=== PATIENT | female | born 1975 | race Caucasian/White ===

== ENCOUNTER → 2020-11-11 15:48 | Outpatient (CLI) | payer SELFPAY | PROVIDERS: Referring Provider Student in an Organized Health Care Education/Training Program; Visit Provider Student in an Organized Health Care Education/Training Program | DX: H60.90 Unspecified otitis externa, unspecified ear (principal) | CPT/HCPCS: 87070; 87077; 87186; 87205 ==

== ENCOUNTER → 2021-09-20 16:48 | Outpatient (CLI) | payer SELFPAY ==
--- NOTE | 2021-09-20 16:54 | DI.RAD.S_ITS ---
PROCEDURE: XR RIBS LT MIN 3V W CXR1V INDICATIONS: fall, L anterior/lateral rib pain TECHNIQUE: 2 views of the left ribs were acquired, along with a single view chest. COMPARISON: None. FINDINGS: Surgical changes and devices: None. Bones and chest wall: No fractures or dislocations. No suspicious bony lesions. Overlying soft tissues appear unremarkable. Lungs and pleura: No pleural effusions or pneumothorax. Lungs appear clear. Mediastinum: Mediastinal contours appear normal. Heart size is normal. IMPRESSION: No displaced left-sided rib fracture. Dictated by: Emil Willson M.D. on 09/20/2021 at 16:15 Approved by: Emil Willson M.D. on 09/20/2021 at 16:16
== END ==
PROVIDERS: Referring Provider Physician Assistant; Visit Provider Physician Assistant
DX: R07.81 Pleurodynia (principal)
CPT/HCPCS: 71101

== ENCOUNTER 2023-08-03 11:28 | Emergency (ER) | payer OTHER, SELFPAY ==
[2023-08-03 11:50] VITALS: BP 137/72; PULSE 70; RESP 18; TEMP 36.6; O2SAT 99; BMI 23.8
[2023-08-03 12:40] LABS: Add Manual Diff / Slide Review NO; Basophils Absolute Auto 100 /uL (0-100); Basophils Percent Auto 0.8 % (0-2); Eosinophils Absolute Auto 300 /uL (0-450); Eosinophils Percent Auto 4.5 % (2-4); Hematocrit 41.9 % (36-46); Hemoglobin 14.2 g/dL (12.0-16.0); Lymphocytes Absolute Auto 1500 /uL (1100-4500); Lymphocytes Percent Auto 19.3 % (25-40); Mean Corpuscular HGB Conc 33.9 % (30-36); Mean Corpuscular Volume 91.5 fL (80-100); Monocytes Absolute Auto 400 /uL (0-900); Monocytes Percent Auto 5.1 % (3-14); Neutrophils Absolute Auto 5400 /uL (1500-7000); Neutrophils Percent Auto 70.3 % (50-75); Platelet Count 193 X10^3/uL (150-400); Red Blood Cell Count 4.58 X10^6/uL (4.0-5.2); Red Cell Distribution Width 13.1 % (11.6-14.8); White Blood Cell Count 7.7 X10^3/uL (4.5-11.0)
[2023-08-03 12:54] LABS: Alanine Aminotransferase 23 IU/L (<35); Albumin 4.3 g/dL (3.5-5.0); Albumin Globulin Ratio 1.3 (1.0-2.8); Alkaline Phosphatase 60 U/L (38-126); Aspartate Aminotransferase 29 IU/L (14-36); BUN Creatinine Ratio 15.4 (6-22); Bilirubin Total 0.6 mg/dL (0.2-1.3); Blood Urea Nitrogen 10 mg/dL (7-17); Calcium 9.6 mg/dL (8.4-10.2); Carbon Dioxide 30 mmol/L (22-32); Chloride 104 mmol/L (98-107); Estimated Glomerular Filt Rate > 60 mL/min (>60); Globulin 3.4 g/dL (1.7-4.1); Glucose 104 mg/dL (70-100); HEMOLYSIS < 15 (0-50); Lipase 26 U/L (23-300); Potassium 3.9 mmol/L (3.4-5.1); Sodium 140 mmol/L (137-145); Total Protein 7.7 g/dL (6.3-8.2)
--- NOTE | 2023-08-03 13:20 | ED_ITS ---
HPI - General Adult General Chief complaint: Abdominal Pain Stated complaint: severe rectal pain Time Seen by Provider: 08/03/23 13:00 Source: patient Mode of arrival: Ambulatory History of Present Illness HPI narrative: Patient is a 48-year-old female. For the past 3 weeks has had lower abdominal pain, pelvic pain, perineal pain. She states that she feels like her hemorrhoids she has had for the past 15 years are flaring up. Has had very thin stools. Spasming in her rectum. Blood-streaked stool. She also states she is having some problems urinating. No vaginal bleeding. No fevers. No vomiting. No skin changes. Related Data Previous Rx's Medication Instructions Recorded tramadol 50 mg tablet 50 mg PO Q8H PRN pain #10 tabs 08/03/23 Allergies Allergy/AdvReac Type Severity Reaction Status Date / Time Penicillins AdvReac Intermediate Vomitting, Verified 08/03/23 12:38 diarrhea, rash Review of Systems Constitutional Constitutional: Reports system reviewed and no additional complaints, except as documented Gastrointestinal Gastrointestinal: Reports system reviewed and no additional complaints, except as documented Genitourinary Genitourinary: Reports system reviewed and no additional complaints, except as documented Integumentary/Breasts Skin/Breast: Reports system reviewed and no additional complaints, except as documented Hematologic/Lymphatic On Anticoagulants: No Patient History Social History Smoking Status: Never smoker Smoking Status: Never smoker alcohol intake frequency: a few times a month Substance Use Type: marijuana Exam Initial Vital Signs Initial Vital Signs: Vital Signs Temperature 97.8 F 08/03/23 11:50 Pulse Rate 70 08/03/23 11:50 Respiratory Rate 18 08/03/23 11:50 Blood Pressure 137/72 08/03/23 11:50 Pulse Oximetry 99 08/03/23 11:50 Oxygen Delivery Method Room Air 08/03/23 11:50 Const General: cooperative and No ill appearing HENMT Head: normal to inspection and normocephalic Resp Effort & Inspection: normal respiratory effort Cardio Rate: regular rate GI Other: Patient does have nonthrombosed external hemorrhoids. She has tenderness with palpation around the rectal area. There is no erythema. No prolapsed internal hemorrhoids. No gross blood. Does have tenderness to palpation of her lower abdomen bilateral. Skin General: no rashes or lesions noted Neuro General: patient alert, patient awake, patient oriented x3 and moves all extremities Extrem General: normal to inspection and capillary refill normal Course Orders Ordered: ED Orders 08/03/23 12:30 Complete Blood Count AUTO DIFF Stat Comprehensive Metabolic Panel Stat Lipase Stat 08/03/23 13:20 CT abdomen pelvis w con Stat 08/03/23 14:35 US pelvic complete Stat Discontinued Medications Hydromorphone HCl (Hydromorphone 1 Mg Inj) 1 mg IV NOW ONE Stop: 08/03/23 13:20 Last Admin: 08/03/23 13:29 Dose: 1 mg Documented By: GAEL Sodium Chloride (Normal Saline 0.9%) 1,000 mls @ 1,000 mls/hr IV BOLUS ONE Stop: 08/03/23 14:18 Last Infusion: 08/03/23 14:32 Dose: Infused Documented By: Admin: 08/03/23 13:30 Dose: 1,000 mls/hr Documented By: GAEL Ketorolac Tromethamine (Ketorolac 30 Mg/Ml Vial) 30 mg IV NOW ONE Stop: 08/03/23 15:14 Last Admin: 08/03/23 15:41 Dose: 30 mg Documented By: GAEL Ondansetron HCl (Ondansetron 4 Mg/2 Ml Inj) 4 mg IV NOW PRN PRN Reason: Nausea And Vomiting Last Admin: 08/03/23 13:30 Dose: 4 mg Documented By: GAEL Ondansetron HCl (Ondansetron 4 Mg Odt) 4 mg PO NOW PRN PRN Reason: Nausea And Vomiting Vital Signs Vital signs: Vital Signs - 8 hr 08/03/23 11:50 Temperature 97.8 F Pulse Rate 70 Respiratory Rate 18 Blood Pressure 137/72 Pulse Oximetry 99 Oxygen Delivery Method Room Air Medical Decision Making Lab Data Lab results reviewed: Yes I reviewed the patient's lab results. 08/03/23 12:30 08/03/23 12:30 Labs: Lab Results 08/03/23 Range/Units 12:30 WBC 7.7 (4.5-11.0) X10^3/uL RBC 4.58 (4.0-5.2) X10^6/uL Hgb 14.2 (12.0-16.0) g/dL Hct 41.9 (36-46) % MCV 91.5 (80-100) fL MCH 31.0 (26-34) PG MCHC 33.9 (30-36) % RDW 13.1 (11.6-14.8) % Plt Count 193 (150-400) X10^3/uL Neut % (Auto) 70.3 (50-75) % Lymph % (Auto) 19.3 L (25-40) % Gilchrist % (Auto) 5.1 (3-14) % Eos % (Auto) 4.5 H (2-4) % Baso % (Auto) 0.8 (0-2) % Neut # (Auto) 5400 (6130-9156) /uL Lymph # (Auto) 1500 (4103-8702) /uL Gilchrist # (Auto) 400 (0-900) /uL Eos # (Auto) 300 (0-450) /uL Baso # (Auto) 100 (0-100) /uL Sodium 140 (137-145) mmol/L Potassium 3.9 (3.4-5.1) mmol/L Chloride 104 (98-107) mmol/L Carbon Dioxide 30 (22-32) mmol/L BUN 10 (7-17) mg/dL Creatinine 0.65 (0.52-1.04) mg/dL Estimated GFR > 60 (>60) mL/min BUN/Creatinine Ratio 15.4 (6-22) Glucose 104 H (70-100) mg/dL Calcium 9.6 (8.4-10.2) mg/dL Total Bilirubin 0.6 (0.2-1.3) mg/dL AST 29 (14-36) IU/L ALT 23 (<35) IU/L Alkaline Phosphatase 60 (38-126) U/L Total Protein 7.7 (6.3-8.2) g/dL Albumin 4.3 (3.5-5.0) g/dL Globulin 3.4 (1.7-4.1) g/dL Albumin/Globulin Ratio 1.3 (1.0-2.8) Lipase 26 (23-300) U/L Point of Care Testing Test Results Negative Urine Dip Bedside Urine Glucose Negative Bedside Urine Bilirubin - Negative Bedside Urine Ketone - Negative Urine Specific [place] 1.005 Bedside Urine Occult Blood - Negative Bedside Urine pH 6.0 Bedside Urine Protein - Negative Bedside Urine Urobilinogen - Negative Bedside Urine Nitrite - Negative Bedside Urine Leukocytes - Negative Esterase Point of care testing: Point of Care Testing Test Results Negative Urine Dip Bedside Urine Glucose Negative Bedside Urine Bilirubin - Negative Bedside Urine Ketone - Negative Urine Specific [place] 1.005 Bedside Urine Occult Blood - Negative Bedside Urine pH 6.0 Bedside Urine Protein - Negative Bedside Urine Urobilinogen - Negative Bedside Urine Nitrite - Negative Bedside Urine Leukocytes - Negative Esterase Imaging Data CT scan - abdomen/pelvis: Radiologist's Impression: PROCEDURE: CT ABDOMEN PELVIS W CON INDICATIONS: Perirectal pain and fullness with generalized abdominal pain TECHNIQUE: After the administration of intravenous contrast, axial sections acquired from the lung bases to the pubic symphysis. Coronal and sagittal reformats were performed. For radiation dose reduction, the following was used: automated exposure control, adjustment of mA and/or kV according to patient size. COMPARISON: None. FINDINGS: Image quality: Diagnostic. Lower Chest: No significant findings. ABDOMEN: Liver: No solid mass. Gallbladder: No radiopaque gallstones or wall thickening. Biliary ducts: No biliary dilation. Pancreas: No ductal dilation. Spleen: Size is within normal limits. Adrenal Glands: No adrenal nodules. Kidneys and Ureters: No hydronephrosis. No solid mass. No complex renal cystic lesion which requires follow up. Stomach and Bowel: In this patient with this given history, scrutiny is given to the rectum. No yasmeen rectal wall thickening is seen. No more proximal colon abnormality is seen. A normal appendix is noted. No dilated loops of small bowel are seen. The stomach is decompressed at the time of this study, limiting its evaluation. Peritoneum: No abnormal intraperitoneal fluid. No free air. Ventral Wall: No hernia. Abdominal Nodes: No retroperitoneal or mesenteric adenopathy by size criteria. Vessels: Aorta and inferior vena cava are normal in size. PELVIS: Pelvic Organs: The uterus appears normal for age. The uterus is retroverted and is seen immediately adjacent to the rectum on the right-side. No adnexal masses are seen. Bladder: Unremarkable. Pelvic Nodes: No enlarged lymph nodes. Miscellaneous: No inguinal hernias are seen. Bones: No aggressive osseous abnormality. Focal degenerative change can be seen at L4-L5 and L5-S1. Mild levoconvex scoliotic curvature is noted. IMPRESSION: No significant rectal wall abnormality is seen. However, the uterus is retroverted and seen immediately adjacent to the rectum. Additional findings: Normal appendix US - LIFE AGENT: Radiologist's Impression: PROCEDURE: US PELVIC COMPLETE INDICATIONS: Lower pelvic pain with unremarkable CT scan TECHNIQUE: Real-time scanning was performed of the pelvic organs, with image documentation. Additional endovaginal scanning was necessary due to incomplete visualization of the adnexal and endometrial structures by transabdominal scanning. COMPARISON: [facility], CT, CT ABDOMEN PELVIS W CON, 08/03/2023, 13:28. FINDINGS: Uterus: Uterus is retroverted and normal in size at 6.3 x 4.2 x 5.4 cm. The myometrium is homogeneous. The endometrium measures 4 mm combined thickness. Ovaries: The right ovary measures 2.4 x 2.4 x 1.5 cm, with a calculated ovarian volume of 4.4 cc. Less than 12 follicles can be seen involving the right ovary. The right ovary has been removed. No adnexal masses are seen on either side. Other: A mild amount of free pelvic fluid is seen, which is considered to be within physiologic limits. IMPRESSION: No imaging explanation is found for this patient's presenting symptoms. Retroverted uterus. MDM Narrative Medical decision making narrative: Labs are unremarkable. CT scan shows no acute pathology. Ultrasound has no acute pathology. Unsure the exact etiology of her symptoms. It does not appear to be thrombosed hemorrhoid. No acute surgical consultation needed. Patient has never had a colonoscopy. No indication for antibiotics. 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 She was given return precautions. She expressed understanding and agreement. Discharge Plan Departure Patient Disposition: Home Clinical Impression: Abdominal pain Instructions: DI for Abdominal Pain-Adult Activity Restrictions/Additional Instructions: Recommend that you contact help establish a primary care provider. You can contact the combat systems operator mine warfare and the general surgeons with the number provided below for a follow-up. Recommend a bland diet and a bowel regimen to the point where you are having soft bowel movements daily. Return to the emergency department for new symptoms. Prescriptions: New tramadol 50 mg tablet 50 mg PO Q8H PRN (Reason: pain) Qty: 10 0RF Referrals: Eulalio Mercado MD [Physician] - Noemy Mosquera DO [Physician] - Stand Alone Forms: Patient Portal/API
[2023-08-03] MEDS: HYDROMORPHONE 1 MG INJ IV (13:29)
[2023-08-03] MEDS: ONDANSETRON 4 MG/2 ML INJ IV (13:30)
[2023-08-03] MEDS: SODIUM CHLORIDE 0.9% 1,000 ML 1000 ML IV (13:30)
--- NOTE | 2023-08-03 14:35 | DI.US.S_ITS ---
PROCEDURE: US PELVIC COMPLETE INDICATIONS: Lower pelvic pain with unremarkable CT scan TECHNIQUE: Real-time scanning was performed of the pelvic organs, with image documentation. Additional endovaginal scanning was necessary due to incomplete visualization of the adnexal and endometrial structures by transabdominal scanning. COMPARISON: [facility], CT, CT ABDOMEN PELVIS W CON, 08/03/2023, 13:28. FINDINGS: Uterus: Uterus is retroverted and normal in size at 6.3 x 4.2 x 5.4 cm. The myometrium is homogeneous. The endometrium measures 4 mm combined thickness. Ovaries: The right ovary measures 2.4 x 2.4 x 1.5 cm, with a calculated ovarian volume of 4.4 cc. Less than 12 follicles can be seen involving the right ovary. The right ovary has been removed. No adnexal masses are seen on either side. Other: A mild amount of free pelvic fluid is seen, which is considered to be within physiologic limits. IMPRESSION: No imaging explanation is found for this patient's presenting symptoms. Retroverted uterus. We strive to produce accurate, complete, and clear reports of imaging services. To assist us in improving patient care, this report was composed using standard report templates and voice recognition software. Therefore, it may contain abnormal punctuation, insertions and/or omissions. Occasional wrong-word or sound-alike substitutions may occur. Though we review the report and make efforts to correct it, we do recommend that the report be read carefully in proper context to recognize any text inaccuracies. Dictated by: Pako Almanzar M.D. on 08/03/2023 at 14:35 Approved by: Pako Almanzar M.D. on 08/03/2023 at 14:36
[2023-08-03] MEDS: KETOROLAC 30 MG/ML VIAL IV (15:41)
== END 2023-08-03 16:57 | disposition home or self-care (01) ==
PROVIDERS: Emergency Provider Emergency Medicine
DX: R10.2 Pelvic and perineal pain (principal)
CPT/HCPCS: 36415; 74177; 76856; 80053; 81003; 81025; 83690; 85025; 96361; 96374; 96375; 99284; J1170; J1885; J2405; Q9967

== ENCOUNTER 2023-09-18 08:23 | Day surgery (SDC) | payer OTHER, SELFPAY ==
[2023-09-18 08:52] VITALS: BP 100/66; PULSE 68; RESP 16; TEMP 36.4; O2SAT 100
[2023-09-18] MEDS: LACTATED RINGERS 1,000 ML 42 ML IV (09:01)
--- NOTE | 2023-09-18 09:03 | P.HP_ITS ---
History of Present Illness History of Present Illness Date Patient Seen: 09/18/23 Time Patient Seen: 09:03 Chief complaint: SDC Narrative: Sally is a 48 year old woman who presents for a colonoscopy. See office note from August for more details. She has been using the topical ointment and she thinks it may be helping with her symptoms. [facility] Social History Smoking Status: Never smoker Meds Home Medications and Allergies Home Medications Medication Instructions Recorded Confirmed Type tramadol 50 mg tablet 50 mg PO Q8H PRN pain #10 tabs 08/03/23 09/18/23 Rx Allergies Allergy/AdvReac Type Severity Reaction Status Date / Time erythromycin base Allergy Vomiting Verified 09/18/23 08:45 Penicillins AdvReac Intermediate Vomitting, Verified 08/13/23 10:53 diarrhea, rash Exam Vital Signs (past 8 hours): - 09/18/23 08:52 Temperature 97.6 F Pulse Rate 68 Respiratory Rate 16 Blood Pressure 100/66 Pulse Oximetry 100 Oxygen Delivery Method Room Air Oxygen Delivery Method Room Air Const General: No acute distress Resp Effort & Inspection: normal respiratory effort Assessment & Plan Assessment and plan (1) Anorectal pain: Status: Acute Plan We will proceed with colonoscopy today.
--- NOTE | 2023-09-18 10:15 | PM.OP.COLON ---
Operative Date/Time/Diagnoses Date of procedure: 09/18/23 Time of procedure: 10:15 Pre-op diagnosis: Colon cancer screening and proctalgia Post-op diagnosis: same Procedure & Clinicians Study performed: Colonoscopy Same procedure as scheduled: Yes Surgeon: Eulalio Mercado Procedure Notes Procedure in detail: Surgeon: Eulalio Mercado MD Anesthesia: Ainsley Werner CRNA Procedure: The patient was brought to the endoscopy suite, placed in left lateral decubitus position. The patient was connected to monitoring devices. A time-out was performed. Sedation was administered. Once the patient was adequately sedated, a digital rectal exam was performed and moderate external hemorrhoids were noted. The scope was then inserted and advanced to the cecum where the appendiceal orifice was identified and photographed. The scope was then slowly withdrawn over greater than 6 minutes. The mucosa was thoroughly inspected. No polyps or other abnormalities were seen in the colon. The scope was retroflexed in the rectum. Moderate internal hemorrhoids were noted. The scope was straightened and removed. The anal canal was closely inspected again after the scope was removed and it did appear that there was a posterior midline fissure which was bleeding slightly. The patient was awakened and brought to recovery. Scope withdrawal time: 7 minutes Sedation time: 13 minutes EBL: 1 mL Findings: Mixed hemorrhoids and a posterior midline fissure Post-procedure Disposition: PACU
[2023-09-18 10:16] VITALS: BP 116/74; PULSE 59; RESP 16; TEMP 37.2; O2SAT 98
[2023-09-18 10:21] VITALS: BP 104/69; PULSE 51; RESP 14; O2SAT 98
[2023-09-18 10:27] VITALS: BP 125/71; PULSE 51; RESP 18; O2SAT 99
[2023-09-18 10:31] VITALS: BP 128/69; PULSE 50; RESP 15; TEMP 37.1; O2SAT 99
== END 2023-09-18 11:09 | disposition home or self-care (01) ==
PROVIDERS: Referring Provider Surgery; Visit Provider Surgery
PROC: 0DJD8ZZ Inspection of Lower Intestinal Tract, Via Natural or Artificial Opening Endoscopic (ICD-10-PCS; CPT 45378; principal; 2023-09-18 09:15)
DX: Z12.11 Encounter for screening for malignant neoplasm of colon (principal); K64.8 Other hemorrhoids; K60.2 Anal fissure, unspecified
CPT/HCPCS: 45378; J2704

== ENCOUNTER 2024-10-21 00:05 | Emergency (ER) | payer BC, SELFPAY ==
[2024-10-21 00:23] VITALS: BP 138/80; PULSE 68; RESP 20; TEMP 36.9; O2SAT 98; BMI 22.8
--- NOTE | 2024-10-21 00:28 | DI.CT.S_ITS ---
PROCEDURE: CT ABDOMEN PELVIS W CON INDICATIONS: RLQ pain TECHNIQUE: After the administration of intravenous contrast, axial sections acquired from the lung bases to the pubic symphysis. Coronal and sagittal reformats were performed. For radiation dose reduction, the following was used: automated exposure control, adjustment of mA and/or kV according to patient size. COMPARISON: [facility], CT, CT ABDOMEN PELVIS W CON, 08/03/2023, 13:28. FINDINGS: Image quality: Diagnostic. Lower Chest: No significant findings. ABDOMEN: Liver: No solid mass. Gallbladder: No radiopaque gallstones or wall thickening. Biliary ducts: No biliary dilation. Pancreas: No ductal dilation. Spleen: Size is within normal limits. Adrenal Glands: No adrenal nodules. Kidneys and Ureters: No hydronephrosis. No solid mass. No complex renal cystic lesion which requires follow up. Stomach and Bowel: Stomach is moderately distended with liquid in fluid material. Small bowel loops are nondilated. Moderate colonic stool. Normal appendix. Peritoneum: No abnormal intraperitoneal fluid. No free air. Ventral Wall: No significant ventral hernia. Abdominal Nodes: No retroperitoneal or mesenteric adenopathy by size criteria. Vessels: Aorta and inferior vena cava are normal in size. PELVIS: Pelvic Organs: Retroverted uterus. No suspicious adnexal mass. Bladder: Bladder wall appears mildly thickened and hyper enhancing. Pelvic Nodes: No enlarged lymph nodes. Miscellaneous: No inguinal hernias are seen. Bones: No aggressive osseous abnormality. IMPRESSION: 1. Normal appendix. 2. Mild circumferential bladder wall thickening may be secondary to underdistention versus cystitis. Approved by: Constantin Andrade M.D. on 10/21/2024 at 1:08
[2024-10-21 00:35] LABS: Add Manual Diff / Slide Review NO; Basophils Absolute Auto 100 /uL (0-100); Eosinophils Absolute Auto 100 /uL (0-450); Eosinophils Percent Auto 1.8 % (2-4); Hematocrit 40.7 % (36-46); Lymphocytes Absolute Auto 1000 /uL (1100-4500); Lymphocytes Percent Auto 16.7 % (25-40); Mean Corpuscular HGB Conc 34.4 % (30-36); Mean Corpuscular Hemoglobin 31.4 PG (26-34); Mean Corpuscular Volume 91.3 fL (80-100); Monocytes Absolute Auto 700 /uL (0-900); Monocytes Percent Auto 11.1 % (3-14); Neutrophils Absolute Auto 4100 /uL (1500-7000); Neutrophils Percent Auto 69.4 % (50-75); Platelet Count 197 X10^3/uL (150-400); Red Blood Cell Count 4.46 X10^6/uL (4.0-5.2); Red Cell Distribution Width 13.3 % (11.6-14.8); White Blood Cell Count 5.9 X10^3/uL (4.5-11.0)
--- NOTE | 2024-10-21 00:37 | ED.ABDPAIN ---
HPI - Abdominal Pain General Chief Complaint: Abdominal Pain Stated Complaint: abd pain/chills/x5 days Time Seen by Provider: 10/21/24 00:23 Source: patient Mode of arrival: Ambulatory History of Present Illness HPI narrative: Patient is a 49-year-old female history of ectopic Health ovarian cyst presenting with right lower. True reports it may have been ongoing for the last 5 days. She started noticing increased urinary frequency and burning. Yesterday she said that she threw up many times. Today she was able to go to work but pain intensified this evening. He denies fever or chills Related Data Previous Rx's Medication Instructions Recorded tramadol 50 mg tablet 50 mg PO Q8H PRN pain #10 tabs 08/03/23 cephalexin 500 mg capsule 500 mg PO BID 5 days #10 caps 10/21/24 cephalexin 500 mg capsule 500 mg PO BID 7 days #14 caps 10/21/24 phenazopyridine 100 mg tablet 100 mg PO TID PRN pain 6 doses #6 10/21/24 (Pyridium) tabs phenazopyridine 100 mg tablet 100 mg PO TID PRN pain 6 doses #6 10/21/24 (Pyridium) tabs Allergies Allergy/AdvReac Type Severity Reaction Status Date / Time erythromycin base Allergy Vomiting Verified 09/18/23 08:45 Penicillins AdvReac Intermediate Vomitting, Verified 08/13/23 10:53 diarrhea, rash Patient History Social History Smoking Status: Never smoker Smoking Status: Never smoker alcohol intake frequency: a few times a month Exam Initial Vital Signs Initial Vital Signs: Vital Signs Temperature 98.4 F 10/21/24 00:23 Pulse Rate 68 10/21/24 00:23 Respiratory Rate 20 10/21/24 00:23 Blood Pressure 138/80 10/21/24 00:23 Pulse Oximetry 98 10/21/24 00:23 Oxygen Delivery Method Room Air 10/21/24 00:23 Course Orders Ordered: ED Orders 10/21/24 00:18 Complete Blood Count AUTO DIFF Stat Comprehensive Metabolic Panel Stat Lipase Stat Urine Culture Stat Urine Microscopic Stat 10/21/24 00:28 CT abdomen pelvis w con Stat EKG-12 Lead Stat Ondansetron HCl (Ondansetron 4 Mg/2 Ml Inj) 4 mg IV NOW PRN PRN Reason: Nausea And Vomiting Last Admin: 10/21/24 00:39 Dose: 4 mg Documented By: ANASTASIA Ondansetron HCl (Ondansetron 4 Mg Odt) 4 mg PO NOW PRN PRN Reason: Nausea And Vomiting Discontinued Medications Cephalexin HCl (Cephalexin 250 Mg Capsule) 500 mg PO NOW ONE Stop: 10/21/24 01:41 Ketorolac Tromethamine (Ketorolac 30 Mg/Ml Vial) 15 mg IV NOW ONE Stop: 10/21/24 00:29 Last Admin: 10/21/24 00:39 Dose: 15 mg Documented By: ANASTASIA Phenazopyridine HCl (Phenazopyridine 100 Mg Tablet) 200 mg PO NOW ONE Stop: 10/21/24 01:41 Vital Signs Vital signs: Vital Signs - 8 hr 10/21/24 00:23 Temperature 98.4 F Pulse Rate 68 Respiratory Rate 20 Blood Pressure 138/80 Pulse Oximetry 98 Oxygen Delivery Method Room Air MDM - Abdominal Pain Lab Data 10/21/24 00:18 10/21/24 00:18 Labs: Lab Results 10/21/24 Range/Units 00:18 WBC 5.9 (4.5-11.0) X10^3/uL RBC 4.46 (4.0-5.2) X10^6/uL Hgb 14.0 (12.0-16.0) g/dL Hct 40.7 (36-46) % MCV 91.3 (80-100) fL MCH 31.4 (26-34) PG MCHC 34.4 (30-36) % RDW 13.3 (11.6-14.8) % Plt Count 197 (150-400) X10^3/uL Neut % (Auto) 69.4 (50-75) % Lymph % (Auto) 16.7 L (25-40) % [place] % (Auto) 11.1 (3-14) % Eos % (Auto) 1.8 L (2-4) % Baso % (Auto) 1.0 (0-2) % Neut # (Auto) 4100 (7907-5736) /uL Lymph # (Auto) 1000 L (8351-6933) /uL [place] # (Auto) 700 (0-900) /uL Eos # (Auto) 100 (0-450) /uL Baso # (Auto) 100 (0-100) /uL Sodium 137 (137-145) mmol/L Potassium 4.0 (3.4-5.1) mmol/L Chloride 100 (98-107) mmol/L Carbon Dioxide 29 (22-32) mmol/L BUN 11 (7-17) mg/dL Creatinine 0.67 (0.52-1.04) mg/dL Estimated GFR > 60 (>60) mL/min BUN/Creatinine Ratio 16.4 (6-22) Glucose 109 H (70-100) mg/dL Calcium 9.0 (8.4-10.2) mg/dL Total Bilirubin 0.7 (0.2-1.3) mg/dL AST 30 (14-36) IU/L ALT 23 (<35) IU/L Alkaline Phosphatase 69 (38-126) U/L Total Protein 7.3 (6.3-8.2) g/dL Albumin 4.3 (3.5-5.0) g/dL Globulin 3.0 (1.7-4.1) g/dL Albumin/Globulin Ratio 1.4 (1.0-2.8) Lipase 27 (23-300) U/L Urine RBC 30-100/hpf H (0-5/HPF) Urine WBC >100/hpf H (0-5/HPF) Ur Squamous Epith Cells 0-1 /hpf (0-5/HPF) Urine Bacteria Many (>30) H (None) Vol Urine Centrifuged 10ml (spun) Point of care testing: Point of Care Testing Test Results Negative Urine Dip Bedside Urine Glucose Negative Bedside Urine Bilirubin - Negative Bedside Urine Ketone - Negative Urine Specific [place] 1.010 Bedside Urine Occult Blood +++ Bedside Urine pH 9.0 Bedside Urine Protein +++ 300 Bedside Urine Urobilinogen - Negative Bedside Urine Nitrite + Positive Bedside Urine Leukocytes +++ [address] scan - abdomen/pelvis: Radiologist's Impression: PROCEDURE: CT ABDOMEN PELVIS W CON INDICATIONS: RLQ pain TECHNIQUE: After the administration of intravenous contrast, axial sections acquired from the lung bases to the pubic symphysis. Coronal and sagittal reformats were performed. For radiation dose reduction, the following was used: automated exposure control, adjustment of mA and/or kV according to patient size. COMPARISON: [facility], CT, CT ABDOMEN PELVIS W CON, 08/03/2023, 13:28. FINDINGS: Image quality: Diagnostic. Lower Chest: No significant findings. ABDOMEN: Liver: No solid mass. Gallbladder: No radiopaque gallstones or wall thickening. Biliary ducts: No biliary dilation. Pancreas: No ductal dilation. Spleen: Size is within normal limits. Adrenal Glands: No adrenal nodules. Kidneys and Ureters: No hydronephrosis. No solid mass. No complex renal cystic lesion which requires follow up. Stomach and Bowel: Stomach is moderately distended with liquid in fluid material. Small bowel loops are nondilated. Moderate colonic stool. Normal appendix. Peritoneum: No abnormal intraperitoneal fluid. No free air. Ventral Wall: No significant ventral hernia. Abdominal Nodes: No retroperitoneal or mesenteric adenopathy by size criteria. Vessels: Aorta and inferior vena cava are normal in size. PELVIS: Pelvic Organs: Retroverted uterus. No suspicious adnexal mass. Bladder: Bladder wall appears mildly thickened and hyper enhancing. Pelvic Nodes: No enlarged lymph nodes. Miscellaneous: No inguinal hernias are seen. Bones: No aggressive osseous abnormality. IMPRESSION: 1. Normal appendix. 2. Mild circumferential bladder wall thickening may be secondary to underdistention versus cystitis. Approved by: Constantin Andrade M.D. on 10/21/2024 at 1:08 MDM Narrative Medical decision making narrative: Patient is a healthy 49-year-old female who presents today with painful frequent urination along with the abdominal pain. She the vomited many times yesterday. She was mildly tender in her right lower quadrant. Differential diagnosis includes nephrolithiasis appendicitis ovarian torsion Blood work has been reviewed No leukocytosis no anemia WBC is 5.9 No electrolyte abnormality no RHONDA Urinalysis positive for blood nitrates and leukocytes consistent with UTI Patient has a UTI without evidence of nephrolithiasis cholelithiasis or sepsis. She was given Toradol here in the ED overall feeling much better. Keflex and pyridium given here in the ED Discharge Plan Departure Patient Disposition: Home Clinical Impression: UTI (urinary tract infection) Instructions: DI for Urinary Tract Infection (UTI) Activity Restrictions/Additional Instructions: *You have been diagnosed with UTI *What to do: At this time blood work and CT scanner overall reassuring. You do have a bladder infection. *Continue to take medications as directed Keflex 500 mg twice a day for 5 days Pyridium 100 mg 3 times a day only if needed for frequent burning sensation Tylenol or Motrin as needed for pain *Follow up with your primary care provider in 2-3 days or call [phone] *Return to ER if you should have increasing pain persistent vomiting [or] any new, worsening or concerning symptoms Prescriptions: New phenazopyridine [Pyridium] 100 mg tablet 100 mg PO TID PRN (Reason: pain) Qty: 6 0RF cephalexin 500 mg capsule 500 mg PO BID 7 Days Qty: 14 0RF phenazopyridine [Pyridium] 100 mg tablet 100 mg PO TID PRN (Reason: pain) Qty: 6 0RF cephalexin 500 mg capsule 500 mg PO BID 5 Days Qty: 10 0RF No Action tramadol 50 mg tablet 50 mg PO Q8H PRN (Reason: pain) Qty: 10 0RF Referrals: Miscellaneous,Doctor, MD [Primary Care Provider] - Stand Alone Forms: Patient Portal/API/Survey
[2024-10-21] MEDS: KETOROLAC 30 MG/ML VIAL 15 MG IV (00:39)
[2024-10-21] MEDS: ONDANSETRON 4 MG/2 ML INJ IV (00:39)
[2024-10-21 00:49] LABS: Alanine Aminotransferase 23 IU/L (<35); Albumin 4.3 g/dL (3.5-5.0); Albumin Globulin Ratio 1.4 (1.0-2.8); Alkaline Phosphatase 69 U/L (38-126); Aspartate Aminotransferase 30 IU/L (14-36); BUN Creatinine Ratio 16.4 (6-22); Bilirubin Total 0.7 mg/dL (0.2-1.3); Blood Urea Nitrogen 11 mg/dL (7-17); Carbon Dioxide 29 mmol/L (22-32); Chloride 100 mmol/L (98-107); Estimated Glomerular Filt Rate > 60 mL/min (>60); Glucose 109 mg/dL (70-100); HEMOLYSIS < 15 (0-50); Lipase 27 U/L (23-300); Sodium 137 mmol/L (137-145); Total Protein 7.3 g/dL (6.3-8.2)
[2024-10-21 01:03] LABS: Urine Volume 10mL (spun)
[2024-10-21 01:08] LABS: Bacteria Urine Many (>30); RBC Urine 30-100/HPF (0-5/HPF); Squamous Epithelial Cell Urine 0-1 /HPF (0-5/HPF); WBC Urine >100/HPF (0-5/HPF)
[2024-10-21] MEDS: PHENAZOPYRIDINE 100 MG TABLET 200 MG PO (02:00)
[2024-10-21] MEDS: cephALEXin 250 MG CAPSULE 500 MG PO (02:00)
[2024-10-21 02:08] VITALS: BP 96/58; PULSE 78; RESP 16; O2SAT 98
== END 2024-10-21 02:10 | disposition home or self-care (01) ==
PROVIDERS: Emergency Provider Emergency Medicine
DX: N39.0 Urinary tract infection, site not specified (principal)
CPT/HCPCS: 36415; 74177; 80053; 81003; 81015; 81025; 83690; 85025; 87077; 87086; 87186; 96374; 96375; 99284; J1885; J2405; Q9967

== ENCOUNTER → 2024-11-11 10:06 | Outpatient (CLI) | payer BC, SELFPAY | PROVIDERS: Visit Provider Nurse Practitioner Family | DX: Z11.3 Encounter for screening for infections with a predominantly sexual mode of transmission (principal); R30.0 Dysuria; A64 Unspecified sexually transmitted disease | CPT/HCPCS: 87086; 87210 ==

== ENCOUNTER → 2024-11-11 10:48 | Outpatient (CLI) | payer BC, SELFPAY ==
[2024-11-11 16:04] LABS: Hepatitis B Surface Antigen NEGATIVE s/c (NEGATIVE)
[2024-11-11 16:13] LABS: HIV 1 & 2 Ab/Ag 4th Gen Combo NEGATIVE (NEGATIVE); Hep C Virus Ab w/Reflex Quant NEGATIVE s/c (NEGATIVE)
[2024-11-12 00:11] LABS: HSV 1 IGG AB Reactive (Non Reactive); HSV 2 IGG AB Non Reactive (Non Reactive)
[2024-11-12 06:05] LABS: RPR Screen Non Reactive (Non Reactive)
== END ==
PROVIDERS: Referring Provider Nurse Practitioner Family; Visit Provider Nurse Practitioner Family
DX: Z11.3 Encounter for screening for infections with a predominantly sexual mode of transmission (principal)
CPT/HCPCS: 36415; 86592; 86695; 86696; 86803; 87086; 87210; 87340; 87389

== ENCOUNTER → 2025-03-16 14:36 | Outpatient (CLI) | payer BC, SELFPAY ==
[2025-03-16 16:52] LABS: Urine N gonorrhoeae NOT DETECTED
[2025-03-16 17:01] LABS: Urine Chlamydia NOT DETECTED
== END ==
PROVIDERS: Visit Provider Chiropractor
DX: R30.0 Dysuria (principal); R10.9 Unspecified abdominal pain
CPT/HCPCS: 87086; 87491; 87591